=== PATIENT | female | born 1955 | race Caucasian/White ===

== ENCOUNTER → 2017-02-15 | Outpatient (CLI) | payer OTHER ==
--- NOTE | 2017-02-16 21:45 | MR ---
EXAMINATION TYPE: MR thoracic spine wo con DATE OF EXAM: 02/15/2017 5:28 PM COMPARISON: NONE HISTORY: constant pain mid back x2 years CONTRAST: Performed utilizing 0 mL intravenous MultiHance gadolinium contrast. TECHNIQUE: Multiplanar, multiecho imaging on a 3.0 Jessica magnet is performed through the thoracic spi ne. FINDINGS: Note is made of degenerative changes within the lower cervical spine. T4-5: Left paracentral disc bulge is present with mild anterior thecal sac compression. No cord conta ct is evident. No spinal canal stenosis or neural foraminal stenosis present. T3-4: Minimal central bulge is present with anterior thecal sac compression. No spinal canal stenosis cord contact or foraminal stenosis is present. T8-9: Moderate left paracentral disc herniation is present with moderate anterior thecal sac compress ion. This comes in close approximation with the spinal cord. No spinal canal stenosis cord deformity or cord contact is evident. Spinal cord maintains normal signal through its visualized course. Scoliosis is present. Vertebral body heights are preserved. Disc heights are preserved. Disc hydration levels are preserved. IMPRESSIONS: 1. Degenerative disc changes greatest at T8-9 in the left paracentral region with moderate anterior t hecal sac compression. 2. Milder central and left paracentral disc bulging present respectively at T3-4 T4-5
== END | disposition home or self-care (01) ==
LOC: RADMRIMAIN 16:30
PROVIDERS: ATTEND Nurse Practitioner Family
DX: M51.24 Other intervertebral disc displacement, thoracic region (principal); M47.814 Spondylosis without myelopathy or radiculopathy, thoracic region
CPT/HCPCS: 72146

== ENCOUNTER → 2017-07-08 | Outpatient (CLI) | payer OTHER ==
[2017-07-08 13:42] LABS: Anion Gap 11 mmol/L; Blood Urea Nitrogen 9 mg/dL (7-17); Carbon Dioxide 26 mmol/L (22-30); Chloride 106 mmol/L (98-107); Glucose 133 mg/dL (74-99); Non-African American GFR(MDRD) >60 (>60 ml/min/1.73 sqM); Potassium 4.2 mmol/L (3.5-5.1); Sodium 143 mmol/L (137-145)
== END | disposition home or self-care (01) ==
LOC: LABWHC1 12:41
PROVIDERS: ATTEND Orthopaedic Surgery
DX: I10 Essential (primary) hypertension (principal)
CPT/HCPCS: 36415; 80048